=== PATIENT | female | born 1970 | race Caucasian/White ===

== ENCOUNTER → 2019-06-05 | Day surgery (SDC) | payer BC ==
[~2019-06-05] MED LIST: ALBUTEROL SULFATE 2.5 MG/3 ML NEBU. NEB PRN; ALPR0.5T PO; ATROPINE 0.5 MG/5 ML DISP.SYRIN. IV PRN; HYDR-2765 PO; IV RINGERS SOLUTION,LACTATED 1,000 ML IV SCH; LISI40TA PO; ONDANSETRON PF 4 MG/2 ML VIAL. IV PRN; PHENOL ORAL SPRAY 177ML BOTTLE. MM PRN; PREG300C PO; PROPOFOL 40 ML IV ONE; diphenhydrAMINE 50 MG/ML VIAL IV PRN
[2019-06-05 09:42] VITALS: BP 140/89
--- NOTE | 2019-06-06 15:07 | PATHOLOGY ---
[facility] Accession Number: [id number] . 01 Material submitted: . PART A: stomach - GASTRIC BIOPSY PART B: esophagus - DISTAL ESOPHAGUS BIOPSY. Modifiers: distal . 01 Clinical history: . A. Gastritis B. GERD . 02 Diagnosis: A. Gastric biopsies: - Very mild chronic gastritis. . B. Esophageal biopsy, distal esophagus: - Reflux esophagitis. . (JPM:vasyl; 06/06/2019) QMS 06/06/2019 0838 Local . 02 Comment: Sections of the gastric biopsy reveal segments of gastric body mucosa showing congestion and very mild chronic inflammation. A properly controlled immunoperoxidase stain for Helicobacter is negative for Helicobacter organisms. . Sections of the distal esophageal biopsy reveal a segment of tangentially oriented, hyperplastic squamous esophageal mucosa consistent with reflux esophagitis. There is no evidence of Carvajal's change, dysplasia, or malignancy. (JPM:vasyl; 06/06/2019) . . Special stain performed: Immunoperoxidase stain for Helicobacter . 02 Electronically signed: . Mikel Hedrick MD, Pathologist NPI- [id number] . 01 Gross description: . A. The specimen is received in formalin, labeled "Paula Garcia, gastric biopsy, gastritis". Received are two segments of pale boogie soft tissue ranging in size from 0.3 to 0.8 cm in maximum dimensions. The specimen is submitted entirely in cassette A1. . B. The specimen is received in formalin, labeled "Paula Garcia, distal esophagus biopsy". Received is a segment of pale boogie soft tissue measuring 0.5 cm in maximum dimensions. The specimen is submitted entirely in cassette B1. (CAA; 06/05/2019) QAC/QAC 06/05/2019 1805 Local . 02 Pathologist provided ICD-10: K29.50, K21.0 . 02 CPT . 621127, 369606, G10896 Specimen Comment: A courtesy copy of this report has been sent to [phone], [phone] Specimen Comment: [id number] Specimen Comment: Report sent to / DR HERNANDEZ Performed at: 01 [facility] [address] [place] [address] [address], [place], [place] [id number] MD Ronnie Gomes MD Phone: [phone] Performed at: 02 [facility] [address] [place], [place] [id number] MD Mikel Hedrick MD Phone: [phone]
== END ==
LOC: SURG 07:12
PROVIDERS: ATTEND Emergency Medicine
DX: K92.1 Melena (principal); K21.0 Gastro-esophageal reflux disease with esophagitis; K22.2 Esophageal obstruction; K64.0 First degree hemorrhoids; K29.50 Unspecified chronic gastritis without bleeding; I10 Essential (primary) hypertension; J45.909 Unspecified asthma, uncomplicated; F32.9 Major depressive disorder, single episode, unspecified; F41.9 Anxiety disorder, unspecified; E66.01 Morbid (severe) obesity due to excess calories; Z68.41 Body mass index [BMI] 40.0-44.9, adult; Z90.49 Acquired absence of other specified parts of digestive tract; Z98.890 Other specified postprocedural states; Z90.710 Acquired absence of both cervix and uterus
CPT/HCPCS: 43239; 43450; 45378; 88305; 88342; J2704; J7120

== ENCOUNTER 2020-01-19 10:56 | Inpatient (IN) | payer BC ==
[~2020-01-19] VITALS: Ht 165.1 cm; Wt 104.4 kg
[~2020-01-19 10:56] MED LIST changes: -ALBUTEROL SULFATE 2.5 MG/3 ML NEBU. NEB PRN; -ATROPINE 0.5 MG/5 ML DISP.SYRIN. IV PRN; -IV RINGERS SOLUTION,LACTATED 1,000 ML IV SCH; -ONDANSETRON PF 4 MG/2 ML VIAL. IV PRN; -PHENOL ORAL SPRAY 177ML BOTTLE. MM PRN; -PROPOFOL 40 ML IV ONE; -diphenhydrAMINE 50 MG/ML VIAL IV PRN
[2020-01-19] MEDS ORDERED: IV NORMAL SALINE 1,000ML 1,000 ML IV ONE (11:15)
--- NOTE | 2020-01-19 11:21 | PHYS DOC ---
Past History Past Medical History: Fibromyalgia Past Surgical History: Hysterectomy, Knee Replacement Alcohol Use: None Drug Use: None General Adult EDM: Chief Complaint: SHORTNESS OF BREATH HPI: HPI: 49-year-old female presents with shortness of breath and cough. She has had the symptoms for 2 to 3 days. The patient was seen by her primary care physician yesterday and placed on antibiotics and steroids. She was given a single breathing treatment at the office but nothing for home. She had a COVID test 2 days ago for work and was negative. Patient presents today because she still just does not feel well. She has mild tachycardia and shortness of breath. She tells me that she has a central chest heaviness that is concerning to her. She is a smoker for greater than 20 years. She continues to smoke. She denies fever or chills. Review of Systems: Review of Systems: Constitutional: Denies fever or chills Eyes: Denies change in visual acuity HENT: Denies nasal congestion or sore throat Respiratory: Cough with shortness of breath Cardiovascular: Chest pain GI: Denies abdominal pain, nausea, vomiting, bloody stools or diarrhea : Denies dysuria Musculoskeletal: Denies back pain or joint pain Integument: Denies rash Neurologic: Denies headache, focal weakness or sensory changes Endocrine: Denies polyuria or polydipsia Lymphatic: Denies swollen glands Psychiatric: Denies depression or anxiety Heart Score: Risk Factors: Risk Factors: DM, Current or recent (<one month) smoker, HTN, HLP, family history of CAD, obesity. Risk Scores: Score 0 - 3: 2.5% MACE over next 6 weeks - Discharge Home Score 4 - 6: 20.3% MACE over next 6 weeks - Admit for Clinical Observation Score 7 - 10: 72.7% MACE over next 6 weeks - Early Invasive Strategies Current Medications: Current Meds: Current Medications Medications (Trade) Dose Ordered Sig/Poly Start Time Stop Time Status Last Admin Dose Admin Sodium Chloride 1,000 ml @ 1,000 mls/hr 1X ONCE 01/19/20 11:15 01/19/20 12:14 UNV Allergies: Allergies: Allergies Coded Allergies Type Severity Reaction Last Updated Verified duloxetine Allergy Intermediate 03/26/14 Yes metaxalone Allergy Intermediate 03/26/14 Yes naproxen Allergy Intermediate 03/26/14 Yes escitalopram Allergy Unknown 05/31/19 Yes Physical Exam: PE: Constitutional: Well developed, well nourished, morbidly obese, no acute distress, non-toxic appearance. [] HENT: Normocephalic, atraumatic, bilateral external ears normal, oropharynx moist, no oral exudates, nose normal. [] Eyes: PERRLA, EOMI, conjunctiva normal, no discharge. [] Neck: Normal range of motion, no tenderness, supple, no stridor. [] Cardiovascular: Heart rate 110, regular rhythm, no murmur [] Lungs & Thorax: Bilateral diffuse expiratory wheezing [] Abdomen: Bowel sounds normal, soft, no tenderness, no masses, no pulsatile masses. [] Skin: Warm, dry, no erythema, no rash. [] Back: No tenderness, no CVA tenderness. [] Extremities: No tenderness, no cyanosis, no clubbing, ROM intact, no edema. [] Neurologic: Alert and oriented X 3, normal motor function, normal sensory function, no focal deficits noted. [] Psychologic: Affect normal, judgement normal, mood normal. [] EKG: EKG: Sinus rhythm, rate 93, normal axis, no ST elevations or depressions. [] Radiology/Procedures: Radiology/Procedures: [] Impressions: EXAM: CT angiography of the chest with intravenous contrast. HISTORY: Shortness of breath. Tachycardia. TECHNIQUE: Computed tomographic images of the chest were obtained following the administration of intravenous contrast according to angiography protocol. Multiplanar reformatting was performed and three dimensional maximum intensity projection images were obtained. *One or more of the following individualized dose reduction techniques were utilized for this examination: 1. Automated exposure control. 2. Adjustment of the mA and/or kV according to patient size. 3. Use of iterative reconstruction technique. COMPARISON: None. FINDINGS: Evaluation for pulmonary embolism is limited due to suboptimal contrast opacification of the pulmonary arteries. No convincing central pulmonary embolism is seen. The heart is normal in size. The aorta is normal in caliber and there is a standard aortic arch branching pattern. There are prominent mediastinal and hilar lymph nodes. For reference purposes, there is a prevascular lymph node measuring 2.0 cm and there are right and left hilar lymph node measuring 2.3 cm and 1.8 cm. There is no pneumothorax or pleural effusion. There is multifocal groundglass infiltrate scattered throughout both lungs. There is focal consolidation of the anterior medial right middle lobe. There is minimal upper lobe predominant emphysema. There is a 1.1 cm circumscribed nodule within the left upper lobe. There is no acute or suspicious osseous finding. IMPRESSION: 1. Limited evaluation for pulmonary embolism due to suboptimal contrast opacification of the pulmonary arteries. No convincing central pulmonary embolism is seen. 2. Multifocal groundglass infiltrate throughout both lungs and partial consolidation of the anterior medial right middle lobe. 3. Mediastinal and hilar lymphadenopathy. This may be reactive in etiology. 4. 1.1 cm left upper lobe pulmonary nodule. In the absence of prior studies to confirm stability, this is likely within limits to further characterize with PET/CT. Electronically signed by: Mili Archibald MD (01/19/2020 12:02 PM) [id number] DICTATED AND SIGNED BY: MILI ARCHIBALD MD DATE: 01/19/20 1202 CC: ANNETTE DELGADO DO; ELVIS HERNANDEZ ~ Course & Med Decision Making: Course & Med Decision Making Pertinent Labs and Imaging studies reviewed. (See chart for details) The patient has an elevated white count, but she is also on prednisone. Her exam is consistent with COPD. I given her a DuoNeb treatment as well as 10 mg of dexamethasone IV. I went and did a CTA had some concern for PE given her new onset hypoxia and elevated heart rate. She was negative for pulmonary embolism however she has groundglass opacities of the bilateral lungs and an area of consolidation in the right. See official report for more details. I will do blood cultures and lactic acid. We will then treat her with azithromycin and Rocephin. I will admit the patient to the hospital for pneumonia. I have discussed this with her she stated verbal understanding. She is in agreement with admission. I spoke with Dr. Julian and he has accepted the patient for admission to the hospital. [] Dragon Disclaimer: Dragon Disclaimer: This electronic medical record was generated, in whole or in part, using a voice recognition dictation system. Departure Departure: Impression: Primary Impression: Pneumonia Disposition: ADMITTED INPT THIS HOSP Admitting Physician: Jj Julian Condition: STABLE Referrals: ELVIS HERNANDEZ (PCP) ANNETTE DELGADO DO Jan 19, 2020 11:21
[2020-01-19] MEDS ORDERED: CONTRAST GIVEN. MC PRN (11:30)
[2020-01-19] MEDS ORDERED: IPRATRPIUM/ALBUTEROL 0.5/2.5MG 3 ML NEBU. NEB ONE (11:30)
[2020-01-19] MEDS ORDERED: IOHEXOL 350 MG/ML 100 ML VIAL. IV ONE (11:30)
--- NOTE | 2020-01-19 11:57 | RAD ---
EXAM: Chest, single view. HISTORY: Shortness of breath. COMPARISON: 06/18/2015 FINDINGS: A frontal view of the chest is obtained. There is diffuse central predominant interstitial infiltrate. There is no consolidation, pleural effusion or pneumothorax. The heart is normal in size. IMPRESSION: Bilateral central predominant interstitial infiltrate. Electronically signed by: Mili Elizondo MD (01/19/2020 11:53 AM) [id number]
[2020-01-19 12:02] LABS: BASO % 0 % (0-3); EOS % 0 % (0-3); HEMOGLOBIN 14.3 g/dL (12.0-15.5); LYMPH # 1.4 x10^3/uL (1.0-4.8); LYMPH % 9 % (24-48); MEAN CORPUSCULAR HEMOGLOBIN 31 pg (25-35); MEAN CORPUSCULAR HGB CONC 33 g/dL (31-37); MEAN CORPUSCULAR VOLUME 93 fL (79-100); MONO # 0.5 x10^3/uL (0.0-1.1); MONO % 3 % (0-9); NEUT # 13.7 x10^3uL (1.8-7.7); NEUT % 87 % (31-73); PLATELET COUNT 311 x10^3/uL (140-400); RED BLOOD COUNT 4.63 x10^6/uL (3.50-5.40); RED CELL DISTRIBUTION WIDTH 13.5 % (11.5-14.5); WHITE BLOOD COUNT 15.7 x10^3/uL (4.0-11.0)
--- NOTE | 2020-01-19 12:05 | RAD ---
EXAM: CT angiography of the chest with intravenous contrast. HISTORY: Shortness of breath. Tachycardia. TECHNIQUE: Computed tomographic images of the chest were obtained following the administration of intravenous contrast according to angiography protocol. Multiplanar reformatting was performed and three dimensional maximum intensity projection images were obtained. *One or more of the following individualized dose reduction techniques were utilized for this examination: 1. Automated exposure control. 2. Adjustment of the mA and/or kV according to patient size. 3. Use of iterative reconstruction technique. COMPARISON: None. FINDINGS: Evaluation for pulmonary embolism is limited due to suboptimal contrast opacification of the pulmonary arteries. No convincing central pulmonary embolism is seen. The heart is normal in size. The aorta is normal in caliber and there is a standard aortic arch branching pattern. There are prominent mediastinal and hilar lymph nodes. For reference purposes, there is a prevascular lymph node measuring 2.0 cm and there are right and left hilar lymph node measuring 2.3 cm and 1.8 cm. There is no pneumothorax or pleural effusion. There is multifocal groundglass infiltrate scattered throughout both lungs. There is focal consolidation of the anterior medial right middle lobe. There is minimal upper lobe predominant emphysema. There is a 1.1 cm circumscribed nodule within the left upper lobe. There is no acute or suspicious osseous finding. IMPRESSION: 1. Limited evaluation for pulmonary embolism due to suboptimal contrast opacification of the pulmonary arteries. No convincing central pulmonary embolism is seen. 2. Multifocal groundglass infiltrate throughout both lungs and partial consolidation of the anterior medial right middle lobe. 3. Mediastinal and hilar lymphadenopathy. This may be reactive in etiology. 4. 1.1 cm left upper lobe pulmonary nodule. In the absence of prior studies to confirm stability, this is likely within limits to further characterize with PET/CT. Electronically signed by: Mili Elizondo MD (01/19/2020 12:02 PM) [id number]
[2020-01-19] MEDS ORDERED: DEXAMETHASONE SOD PHOS 10 MG/ML VIAL. IV ONE (12:15)
[2020-01-19 12:17] LABS: CALCIUM 10.2 mg/dL (8.5-10.1); CREATININE 0.6 mg/dL (0.6-1.0); GFR 106.7; POTASSIUM 3.9 mmol/L (3.5-5.1)
[2020-01-19 12:23] LABS: ALBUMIN 3.9 g/dL (3.4-5.0); ALBUMIN/GLOBULIN RATIO 0.8 (1.0-1.7); TOTAL BILIRUBIN 0.5 mg/dL (0.2-1.0); TOTAL PROTEIN 8.7 g/dL (6.4-8.2)
[2020-01-19] MEDS ORDERED: cefTRIAXone SODIUM 1 GM VIAL ONE (12:27)
[2020-01-19] MEDS ORDERED: IV NORMAL SALINE 50ML 50 ML ONE (12:27)
[2020-01-19] MEDS ORDERED: AZITHROMYCIN 500 MG VIAL. IV ONE (12:27)
[2020-01-19] MEDS ORDERED: IV NORMAL SALINE 250ML 250 ML ONE (12:27)
[2020-01-19] MEDS ORDERED: AZITHROMYCIN 500 MG in IV NORMAL SALINE 250ML 250 ML IV ONE (12:30)
[2020-01-19] MEDS: IPRATRPIUM/ALBUTEROL 0.5/2.5MG 3 ML NEBU. NEB SCH ×2 (14:17→19:42)
--- NOTE | 2020-01-19 15:28 | EKG ---
[facility] ED [facility] [place] [id number] Test Date: 2020-01-19 Test Time: 11:23:36 Pat Name: GLENNY AGOSTO Department: Room: 123 A Gender: F Aemt: : 1970 Requested By: ANNETTE DELGADO Order Number: [id number] Reading MD: Measurements Intervals [place] Rate: 93 P: 0 KS: 158 QRS: 42 QRSD: 96 T: 34 QT: 348 QTc: 435 Interpretive Statements SINUS RHYTHM NORMAL ECG RI6.02 No previous ECG available for comparison
[2020-01-19 15:43] LABS: % BANDS 2 % (0-9); % LYMPHS 13 % (24-48); % MONOS 2 % (0-10); % SEGS 83 % (35-66); PLT ESTIMATE ADEQUATE (ADEQUATE)
[2020-01-19 15:45] LABS: POLYCHROMASIA PRESENT; TOXIC GRANULATION PRESENT
[2020-01-19 16:10] VITALS: BP 132/84
[2020-01-19] MEDS ORDERED: LISI40TA PO (18:29)
[2020-01-19] MEDS ORDERED: PRED20TA PO (18:29)
[2020-01-19] MEDS ORDERED: GABA-585 PO (18:29)
--- NOTE | 2020-01-19 18:43 | NUR ---
The patient, GLENNY AGOSTO, 49 y/o, F admitted by GERARD SCANLON MD, was given written information regarding hospital policies, unit procedures and contact persons. Valuables were checked and VS taken, please see chart.
[2020-01-19 19:42] VITALS: BP 131/82
[2020-01-19] MEDS: GABAPENTIN 100 MG CAPSULE. PO SCH (20:29)
[2020-01-19] MEDS: PREGABALIN 75 MG CAPSULE PO SCH (20:29)
[2020-01-19] MEDS: IV NORMAL SALINE 1,000ML 1,000 ML IV SCH (20:32)
[2020-01-19] MEDS: ONDANSETRON PF 4 MG/2 ML VIAL. IVP PRN (20:32)
[2020-01-19] MEDS: ACETAMINOPHEN 325 MG TABLET PO PRN (22:45)
[2020-01-19 22:54] VITALS: BP 129/72
--- NOTE | 2020-01-20 05:05 | NUR ---
Pt c/o STRICKLAND and nausea at beginning of shift. Given PRN zofran and tylenol per orders. Pt reports significant relief. Remains on O2 at 2L via NC. Able to sleep through night.
[2020-01-20 05:12] VITALS: BP 102/62
[2020-01-20] MEDS: ONDANSETRON PF 4 MG/2 ML VIAL. IVP PRN (05:20)
[2020-01-20] MEDS: ACETAMINOPHEN 325 MG TABLET PO PRN (05:20)
[2020-01-20] MEDS: IPRATRPIUM/ALBUTEROL 0.5/2.5MG 3 ML NEBU. NEB SCH ×2 (05:23→10:04)
[2020-01-20] MEDS: IV NORMAL SALINE 1,000ML 1,000 ML IV SCH ×2 (06:30→15:30)
[2020-01-20 07:19] LABS: HEMATOCRIT 37.4 % (36.0-47.0); HEMOGLOBIN 12.3 g/dL (12.0-15.5); RED CELL DISTRIBUTION WIDTH 13.5 % (11.5-14.5); WHITE BLOOD COUNT 11.8 x10^3/uL (4.0-11.0)
[2020-01-20 07:36] LABS: ALBUMIN 3.2 g/dL (3.4-5.0); ALBUMIN/GLOBULIN RATIO 0.8 (1.0-1.7); CALCIUM 8.2 mg/dL (8.5-10.1); CREATININE 0.6 mg/dL (0.6-1.0); GFR 106.7; POTASSIUM 3.5 mmol/L (3.5-5.1); TOTAL BILIRUBIN 0.3 mg/dL (0.2-1.0); TOTAL PROTEIN 7.1 g/dL (6.4-8.2)
[2020-01-20] MEDS ORDERED: NON FORMULARY ITEM (Lisinopril 1 TAB) PO SCH (09:00)
[2020-01-20] MEDS: AZITHROMYCIN 250 MG TABLET. PO SCH (09:03)
[2020-01-20] MEDS: GABAPENTIN 100 MG CAPSULE. PO SCH ×3 (09:03→20:19)
[2020-01-20] MEDS: predniSONE 20 MG TABLET PO SCH (09:03)
[2020-01-20] MEDS: PREGABALIN 75 MG CAPSULE PO SCH ×2 (09:03→20:19)
[2020-01-20] MEDS: LISINOPRIL 20 MG TABLET PO SCH (09:03)
[2020-01-20] MEDS ORDERED: KETOROLAC 30 MG/ML VIAL. IVP ONE (10:30)
[2020-01-20 10:59] VITALS: BP 120/61
--- NOTE | 2020-01-20 13:53 | HP ---
ADMIT DATE: 01/19/2020 HISTORY OF PRESENT ILLNESS: The patient is a 49-year-old female patient who presented to the Emergency Room with a complaint of shortness of breath and cough that has been going on for the last 3 days. She was seen by her primary care physician and was placed her on steroids and antibiotics. She was given a single breathing treatment at the office, but nothing for home. She had a COVID test 2 days ago and was at work for work and was negative. She presented, still complaining of shortness of breath. She was mildly tachycardic. She stated that she has central chest heaviness that is concerning to her. She is a smoker for greater than 20 years. She continues to smoke. Denied any fevers or chills. She was evaluated in the Emergency Room and was found to have leukocytosis with a white cell count of 15,700. Her chemistry was otherwise unremarkable; however, her chest x-ray showed that the patient has bilateral central predominant interstitial infiltrate. Had a CT angio of the chest, which basically showed the patient has limited evaluation for pulmonary embolism due to suboptimal contrast opacification of the pulmonary arteries, but no convincing central pulmonary embolism is seen. She has multifocal ground glass infiltrates throughout both lungs and partial consolidation in the anterior medial right middle lobe. She has mediastinal and hilar lymphadenopathy. There is no reactive in etiology; however, 1.1 cm left upper lobe pulmonary nodule in the absence of prior studies to confirm stability. This is likely within limits to further characterize with PET scan. The patient was admitted with community-acquired pneumonia and was started on IV antibiotic in the form of ceftriaxone and Zithromax. PAST MEDICAL HISTORY: Significant for hypertension, chronic back pain, left meniscal tear Achilles tendinitis and fibromyalgia. PAST SURGICAL HISTORY: Significant for back surgery, cholecystectomy, total abdominal hysterectomy without oophorectomy. ALLERGIES: SHE IS ALLERGIC TO CYMBALTA, CITALOPRAM, METAXALONE, AND NAPROXEN. MEDICATIONS: She is currently on following medications: She is on lisinopril 40 mg once a day, gabapentin 100 mg 3 times a day, Lyrica 300 mg twice a day and prednisone 20 mg once a day. FAMILY HISTORY: She has one sister who is older and has thyroid cancer that treated and survived. Her father at the age of 73 because of congestive heart failure. Mother is alive at age of 71 and apparently healthy. SOCIAL HISTORY: She is , has 2 daughters and 1 son. She smokes half to 1 pack a day, does not drink alcohol or use any recreational drugs. 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 REVIEW OF SYSTEMS: The patient denied any blurring of vision, cataract, glaucoma or macular degeneration. Denied any earache, tinnitus or sensorineural deafness. Denied any nosebleeds, stuffy nose or postnasal drip. Denied any sore throat, sore tongue, toothache, hoarseness of voice or difficulty swallowing. Denied any nausea, vomiting, diarrhea or constipation. Denied any hematemesis, melena or hematochezia. Denied any dysuria, frequency or hematuria. Did complain of some chest tightness and chest pressure as well as shortness of breath. PHYSICAL EXAMINATION: GENERAL: On arrival to the Emergency Room, she was somewhat tachypneic, tachycardic, but there is no pallor, jaundice, cyanosis or thyromegaly. No jugular venous distention. No lower limb edema. VITAL SIGNS: Her heart rate was 101, blood pressure was 131/62, temperature was 98, respiratory rate was 26 and oxygen saturation was 92% on room air. HEAD, EYES, EARS, NOSE AND THROAT: Showed normocephalic, atraumatic. NECK: Supple. HEART: Showed normal first and second heart sounds. No gallop, rub or murmur. CHEST: Shows central trachea, equal bilateral chest expansion, air entry. She has bilateral diffuse expiratory wheezing. ABDOMEN: Distended, soft, nontender. NEUROLOGIC: She was awake, alert, oriented x 3 with normal motor and sensory function with no obvious focal deficit. Her affect, judgment and mood were normal. LABORATORY DATA: Her EKG showed that she was in sinus rhythm at a rate of 93 beats per minute with no ST segment elevation. Her chest x-ray showed the patient has bilateral central predominant interstitial infiltrate and CT angio of the chest showed that the patient has no evidence of central pulmonary emboli; however, she has multifocal ground glass infiltrates throughout both lungs and partial consolidation of the anterior medial right middle lobe. She has mediastinal hilar lymphadenopathy, this may be reactive in etiology. She has a 1.1 cm left upper lobe pulmonary nodule in the absence of prior studies to confirm stability. This is likely within limits to further characterize with PET scan. Her white cell count was 15,700, hemoglobin 14, hematocrit 43, MCV 93, and platelet count 311,000. Her chemistry showed a serum sodium 138, potassium 3.9, chloride 101, bicarbonate 21, anion gap of 16, BUN 13, creatinine 0.6, estimated GFR was 160 mL per minute, his glucose 120, lactic acid was only 1, calcium was 10.2. Total bilirubin, AST, ALT, alkaline phosphatase were normal. Her troponin was less than 0.017. Total protein was 8.7, albumin was 3.9. ASSESSMENT AND PLAN: The patient was admitted with community-acquired pneumonia. She was started on IV Rocephin and Zithromax. She was continued on all her other medications that included her lisinopril 40 mg once a day, pregabalin 300 mg twice a day, gabapentin 100 mg 3 times a day, albuterol and Atrovent 4 times a day, ondansetron 4 mg every 4 hours as needed. Her blood cultures so far showed no growth. GERARD SCANLON MD DR: BRENNA/sendy JOB#: [id number] / [id number]
[2020-01-20 14:58] VITALS: BP 126/82
[2020-01-20] MEDS ORDERED: HYDROcodone/APAP 7.5/325MG 1 TAB TABLET PO PRN (17:00)
[2020-01-20 19:32] VITALS: BP 145/80
[2020-01-20] MEDS: LACTOBACILLUS RHAMNOSUS GG 1 CAPSULE. PO SCH (20:19)
[2020-01-20 22:33] VITALS: BP 143/83
[2020-01-21] MEDS: IV NORMAL SALINE 1,000ML 1,000 ML IV SCH ×2 (02:58→12:36)
[2020-01-21 05:26] VITALS: BP 147/85
[2020-01-21] MEDS: LACTOBACILLUS RHAMNOSUS GG 1 CAPSULE. PO SCH (08:31)
[2020-01-21] MEDS: predniSONE 20 MG TABLET PO SCH (08:31)
[2020-01-21] MEDS: AZITHROMYCIN 250 MG TABLET. PO SCH (08:32)
[2020-01-21] MEDS: LISINOPRIL 20 MG TABLET PO SCH (08:32)
[2020-01-21] MEDS: GABAPENTIN 100 MG CAPSULE. PO SCH ×2 (08:32→13:37)
[2020-01-21] MEDS: PREGABALIN 75 MG CAPSULE PO SCH (09:21)
[2020-01-21 11:25] VITALS: BP 163/89
[2020-01-21] MEDS ORDERED: AZIT250T PO (15:10)
[2020-01-21] MEDS ORDERED: CEFD300C PO (15:10)
--- NOTE | 2020-01-21 15:38 | NUR ---
NURSING NOTE: DISCHARGE PATIENT DISCHARGED HOME VIA AMBULATION ACCOMPANIED BY SELF. PT TRANSPORTED TO CAR AT ER BY SECURITY. WRITTEN AND VERBAL DISCHARGE INSTRUCTIONS GIVEN, VERBAL UNDERSTANDING RECEIVED. RX FOR CEFDINIR AND ZITHROMAX PROVIDED. NO COMPLICATIONS/NO QUESTIONS. RIGO ISAAC
--- NOTE | 2020-01-21 15:55 | DS ---
DATE OF DISCHARGE: HOSPITAL COURSE: The patient is a 49-year-old female patient who was admitted yesterday with a complaint of shortness of breath. She was mildly tachycardic, has also central chest heaviness that is concerning to her. She is a smoker for greater than 20 years. She continued to smoke. Denied any fever or chills. She was evaluated in the Emergency Room, was found to have leukocytosis with a white cell count 15,700. Her chemistry was otherwise unremarkable. Chest x-ray of the patient showed bilateral central predominant interstitial infiltrate; had a CT angio of the chest, which basically showed the patient has limited evaluation for pulmonary embolism. She has multifocal ground glass infiltrates throughout both lungs and partial consolidation of the anterior medial right. She has also mediastinal and hilar lymphadenopathy. She has a 1.1 cm left upper lobe pulmonary nodule in the absence of prior studies to confirm stability. This is likely within limits to further characterize with PET scan. She was admitted with community-acquired pneumonia and was started on IV antibiotic in the form of ceftriaxone and Zithromax. She did actually very well; has had no more cough, shortness of breath and she has been afebrile. She has had no more headache. PHYSICAL EXAMINATION: GENERAL: When I saw her today, she looked well and was clearly in no apparent respiratory distress. No pallor, jaundice, cyanosis or thyromegaly. No jugular venous distention or limb edema. VITAL SIGNS: Her heart rate was 71, blood pressure was 163/89, temperature was 98.2, respiratory rate was 20, and oxygen saturation was 94%. HEAD, EYES, EARS, NOSE AND THROAT: Showed normocephalic, atraumatic. NECK: Supple. HEART: Showed normal first and second heart sounds. No gallop or murmur. CHEST: Clear to auscultation. No crepitation or rhonchi. ABDOMEN: Distended, soft, nontender. No guarding or rigidity. No organomegaly. All hernial orifices intact. Bowel sounds normal. NEUROLOGIC: She was grossly intact. LABORATORY DATA: Her lab work this morning showed a white cell count down to 11,800, hemoglobin 12, hematocrit 37, MCV 94 and platelet count 223,000. Her chemistry showed a serum sodium of 141, potassium 3.5, chloride 107, bicarbonate 21, anion gap of 13, BUN 11, creatinine 0.6, estimated GFR was 160 mL per minute. Her glucose 101, calcium was 8.2. Total bilirubin, AST, ALT, alkaline phosphatase were normal. Total protein 7.1, albumin was 3.2. DISCHARGE MEDICATIONS: She was discharged home to continue on azithromycin 250 mg once a day for 4 days, cefdinir 300 mg twice a day for 7 days, gabapentin 100 mg 3 times a day, lisinopril 40 mg once a day, pregabalin for Lyrica 300 mg twice a day. FINAL DISCHARGE DIAGNOSES: Community-acquired pneumonia, resolving; hypertension, chronic back pain, left meniscal tear, Achilles tendinitis and fibromyalgia. GERARD SCANLON MD DR: BRENNA/sendy JOB#: [id number] / [id number]
== END 2020-01-21 15:40 | disposition home or self-care (01) | DRG 871 ==
LOC: ER 10:56 → 1 SOUTH 12:05
PROVIDERS: ADMIT Internal Medicine; ATTEND Internal Medicine
DX: A41.9 Sepsis, unspecified organism (principal); J18.9 Pneumonia, unspecified organism; Z96.659 Presence of unspecified artificial knee joint; M79.7 Fibromyalgia; I10 Essential (primary) hypertension; G89.29 Other chronic pain; M54.9 Dorsalgia, unspecified; R59.0 Localized enlarged lymph nodes; R91.1 Solitary pulmonary nodule; F17.210 Nicotine dependence, cigarettes, uncomplicated; M76.62 Achilles tendinitis, left leg; M23.207 Derangement of unspecified meniscus due to old tear or injury, left knee; Z90.710 Acquired absence of both cervix and uterus; Z82.49 Family history of ischemic heart disease and other diseases of the circulatory system; Z80.8 Family history of malignant neoplasm of other organs or systems; Z79.899 Other long term (current) drug therapy; Z88.6 Allergy status to analgesic agent; Z88.8 Allergy status to other drugs, medicaments and biological substances
CPT/HCPCS: 36415; 71045; 71275; 80053; 83605; 84484; 85007; 85025; 85027; 87040; 93005; 94640; 96361; 96365; 96368; 96375; J0456; J0696; J1100; J1885; J2405; J7050; J7512; Q9967; 99285-25; J7030